=== PATIENT | male | born 1995 | race Caucasian/White ===

== ENCOUNTER 2018-12-12 17:01 | Emergency (ER) | payer BC ==
[2018-12-12] MEDS ORDERED: LIDOCAINE 1%/EPINEPHRINE INJ 20 ML VIAL INJ ONE (17:19)
[2018-12-12] MEDS ORDERED: DIPH/PERTUSS(ACELL)/TETANUS VAC/PF 0.5 ML SYR (>=10YO) IM ONE (17:20)
--- NOTE | 2018-12-12 17:21 | ER Document Report ---
ED Medical Screen (RME) - General Chief Complaint: Laceration Stated Complaint: FALL/FACIAL LACERATION Time Seen by Provider: 12/12/18 17:19 Mode of Arrival: Wheelchair Information source: Patient Notes: Patient presents after falling down 12 stairs injuring his face. Patient with a large left facial laceration with arterial bleeding. Patient states that he is uncertain if he would may have gotten into the wound. Patient denies any loss of consciousness nausea or vomiting. Patient does admit to drinking 12 shots today. I have greeted and performed a rapid initial assessment of this patient. A comprehensive ED assessment and evaluation of the patient, analysis of test results and completion of the medical decision making process will be conducted by additional ED providers. Physical Exam - Skin Skin irregularity: Laceration - Arterial bleeding laceration to left side of face
--- NOTE | 2018-12-12 18:00 | RADIOLOGY REPORT (SQ) ---
EXAM DESCRIPTION: CT HEAD WITHOUT COMPLETED DATE/TIME: 12/12/2018 5:49 pm REASON FOR STUDY: fall down stairs, facial lac COMPARISON: Concurrent CT cervical spine and maxillofacial CT TECHNIQUE: Axial images acquired through the brain without intravenous contrast. Images reviewed wi th bone, brain and subdural windows. Additional sagittal and coronal reconstructions were generated. Images stored on PACS. All CT scanners at this facility use dose modulation, iterative reconstruction, and/or weight based d osing when appropriate to reduce radiation dose to as low as reasonably achievable (ALARA). [facility]: Dose Right [facility]: CareDose [facility]: Dose Right [facility]: Teradose 4D [facility]: Smart [employer] RADIATION DOSE: CT Rad equipment meets quality standard of care and radiation dose reduction techniq ues were employed. CTDIvol: 53.2 mGy. DLP: 1044 mGy-cm. mGy. LIMITATIONS: None. FINDINGS: VENTRICLES: Normal size and contour. CEREBRUM: No masses. No hemorrhage. No midline shift. No evidence for acute infarction. Normal gra y/white matter differentiation. No areas of low density in the white matter. CEREBELLUM: No masses. No hemorrhage. No alteration of density. No evidence for acute infarction. EXTRAAXIAL SPACES: No fluid collections. No masses. ORBITS AND GLOBE: No intra- or extraconal masses. Normal contour of globe without masses. CALVARIUM: No fracture. PARANASAL SINUSES: Mild mucoperiosteal thickening in the visualized paranasal sinuses. SOFT TISSUES: No mass or hematoma. OTHER: No other significant finding. IMPRESSION: No acute intracranial hemorrhage. EVIDENCE OF ACUTE STROKE: NO. COMMENT: Quality ID # 436: Final reports with documentation of one or more dose reduction techniques (e.g., Automated exposure control, adjustment of the mA and/or kV according to patient size, use of iterative reconstruction technique) TECHNICAL DOCUMENTATION: JOB ID: [id number] [employer]- All Rights Reserved Reading location - IP/workstation name: [email or web address]
--- NOTE | 2018-12-12 18:02 | RADIOLOGY REPORT (SQ) ---
EXAM DESCRIPTION: CT FACIAL AREA WITHOUT COMPLETED DATE/TIME: 12/12/2018 5:49 pm REASON FOR STUDY: fall down stairs, facial lac COMPARISON: Concurrent head and cervical spine CT is TECHNIQUE: Noncontrasted images through the facial bones and orbits windowed for bone and soft tissu e. Additional coronal and sagittal reconstructed images reviewed. All images stored on PACS. All CT scanners at this facility use dose modulation, iterative reconstruction, and/or weight based d osing when appropriate to reduce radiation dose to as low as reasonably achievable (ALARA). [facility]: Dose Right [facility]: CareDose [facility]: Dose Right [facility]: Teradose 4D [facility]: [employer] RADIATION DOSE: CT Rad equipment meets quality standard of care and radiation dose reduction techniq ues were employed. CTDIvol: 30.4 mGy. DLP: 686 mGy-cm. mGy. LIMITATIONS: None. FINDINGS: FACIAL BONES: No fracture or bone lesion. ORBITS: Intact. No fracture. Symmetric intact globes and retroorbital soft tissues. PARANASAL SINUSES: Mild mucoperiosteal thickening of the paranasal sinuses. No nasal polyps. Maxilla ry sinus outlets are patent. SOFT TISSUES: No mass. No radiopaque foreign body. No soft tissue gas. Bandage material overlies t he soft tissues of the left half of the mandible. INFERIOR BRAIN: Limited view. No acute findings. OTHER: No other significant finding. IMPRESSION: NO ACUTE FINDINGS. TECHNICAL DOCUMENTATION: JOB ID: [id number] Quality ID # [id number]: Final reports with documentation of one or more dose reduction techniques (e.g., Au tomated exposure control, adjustment of the mA and/or kV according to patient size, use of iterative reconstruction technique) 2010 [employer]- All Rights Reserved Reading location - IP/workstation name: [email or web address]
--- NOTE | 2018-12-12 18:04 | RADIOLOGY REPORT (SQ) ---
EXAM DESCRIPTION: CT CERVICAL SPINE WITHOUT COMPLETED DATE/TIME: 12/12/2018 5:49 pm REASON FOR STUDY: fall down stairs, facial lac COMPARISON: Concurrent head and maxillofacial CTs TECHNIQUE: Axial images acquired through the cervical spine without intravenous contrast. Images re viewed with lung, soft tissue and bone windows. Reconstructed coronal and sagittal MPR images review ed. Images stored on PACS. All CT scanners at this facility use dose modulation, iterative reconstruction, and/or weight based d osing when appropriate to reduce radiation dose to as low as reasonably achievable (ALARA). [facility]: Dose Right [facility]: CareDose [facility]: Dose Right [facility]: Teradose 4D [facility]: [employer] RADIATION DOSE: CT Rad equipment meets quality standard of care and radiation dose reduction techniq ues were employed. CTDIvol: 16.2 mGy. DLP: 372 mGy-cm. mGy. LIMITATIONS: None. FINDINGS: ALIGNMENT: Anatomic. MINERALIZATION: Normal. VERTEBRAL BODIES: No fractures or dislocation. DISCS: No significant disc disease. FACETS, LATERAL MASSES, POSTERIOR ELEMENTS: No fractures. No dislocation. No acute findings. HARDWARE: None in the spine. VISUALIZED RIBS: No fractures. LUNG APICES AND SOFT TISSUES: No significant or acute findings. OTHER: No other significant finding. IMPRESSION: NO ACUTE OR SIGNIFICANT FINDINGS IN THE CERVICAL SPINE. TECHNICAL DOCUMENTATION: JOB ID: [id number] Quality ID # [id number]: Final reports with documentation of one or more dose reduction techniques (e.g., Au tomated exposure control, adjustment of the mA and/or kV according to patient size, use of iterative reconstruction technique) 2010 [employer]- All Rights Reserved Reading location - IP/workstation name: [email or web address]
[2018-12-12] MEDS ORDERED: TRANEXAMIC ACID INJ/PF 1,000 MG/10 ML SDV IV ONE (18:54)
--- NOTE | 2018-12-12 19:36 | ER Document Report ---
ED General - General Chief Complaint: Laceration Stated Complaint: FALL/FACIAL LACERATION Time Seen by Provider: 12/12/18 17:19 Mode of Arrival: Wheelchair Notes: Patient is a 23-year-old male without chronic medical history, arrives after falling down several steps while acutely intoxicated sustaining multiple lacerations to the left side of his face. Uncertain whether or not he lost consciousness. Describes a throbbing, aching, moderate, constant pain to the left side of his face and jaw where he fell. Nothing seems improved the pain. No obvious worsening factor. Denies focal weakness, numbness or confusion. Tetanus is not up-to-date. Visiting from [place] with friends and has been unable to speak to his primary doctor regarding today's concerns. Past Medical History - General Information source: Patient - Social History Smoking Status: Current Every Day Smoker Chew tobacco use (# tins/day): No Frequency of alcohol use: Social Drug Abuse: None Lives with: Family Family History: Reviewed & Not Pertinent Patient has suicidal ideation: No Patient has homicidal ideation: No Renal/ Medical History: Denies: Hx Peritoneal Dialysis Review of Systems - Review of Systems Notes: Constitutional: Negative for fever. Eyes: Negative for visual changes. ENT: Positive for facial injury Cardiovascular: Negative for chest injury. Respiratory: Negative for shortness of breath. Gastrointestinal: Negative for abdominal injury. Genitourinary: Negative for genital injury Musculoskeletal: Negative for back injury. Skin: Positive for laceration/abrasions. Neurological: Positive for head injury. Physical Exam - Vital signs Vitals: Temp Pulse Resp BP Pulse Ox 97.9 F 76 21 H 135/87 H 97 12/12/18 19:51 12/12/18 19:51 12/12/18 19:51 12/12/18 19:51 12/12/18 19:51 Interpretation: Normal Notes: PHYSICAL EXAMINATION: GENERAL: Well-appearing, no acute distress. HEAD: Atraumatic, normocephalic. EYES: Pupils equal round and reactive to light, extraocular movements intact, sclera anicteric, conjunctiva are normal. ENT: nares patent, no oral pharyngeal trauma. No hemotympanum, no Arshad's sign, no raccoon eyes. NECK: No midline cervical spine tenderness. Patient able to move their head to 45 bilaterally without any discomfort. LUNGS: Breath sounds clear to auscultation bilaterally and equal. No wheezes rales or rhonchi. HEART: Regular rate and rhythm without murmurs. CHEST WALL: No ecchymosis over the chest wall. ABDOMEN: Soft, nontender, normoactive bowel sounds. No guarding, no rebound. No abdominal bruising EXTREMITIES: Normal range of motion, no pitting or edema. No long bone deformities. BACK: No midline spinal tenderness, step-offs, or deformities. NEUROLOGICAL: Face symmetric. Tongue protrudes midline. Extraocular motions intact. Pupils are 2 mm and equally reactive. Normal speech, normal gait. 5 out of 5 strength in both the distal and proximal upper and lower extremities bilaterally. Sensation is grossly intact throughout. Finger to nose testing normal. Pronator drift normal. PSYCH: Somewhat intoxicated but in no acute distress SKIN: Warm, Dry, normal turgor, positive for lacerations to the left face and ear. Please review documentation from laceration repair notes Course - Re-evaluation Re-evalutation: 12/12/18 19:36 Patient presents after a fall down several steps while intoxicated. Arrives with multiple lacerations over the left ear and left cheek. See laceration repair documentation. Tetanus was updated upon arrival. Given patient's intoxicated status and associated head trauma CT of the head, cervical spine and facial areas were all completed without evidence of underlying fracture or retained foreign body. The patient did not sustain any injuries to any other location. Has no focal neurologic deficits on exam. Like alert, oriented al though intoxicated. TXA was required for injection into the largest 7 cm cheek laceration as there was an arterial bleed that would not stop with direct pressure. This did effectively stop the bleeding and the wound was subsequently closed after aggressive irrigation. Patient has been advised against heavy drinking in the future. At this time will discharge with return precautions and follow-up recommendations. Verbal discharge instructions given a the bedside and opportunity for questions given. Medication warnings reviewed. Patient is in agreement with this plan and has verbalized understanding of return precautions and the need for primary care follow-up in the next 24-72 hours. - Vital Signs Vital signs: Temp Pulse Resp BP Pulse Ox 97.9 F 76 21 H 135/87 H 97 12/12/18 19:51 12/12/18 19:51 12/12/18 19:51 12/12/18 19:51 12/12/18 19:51 - Diagnostic Test Radiology reviewed: Image reviewed, Reports reviewed Radiology results interpreted by me: 12/12/18 19:38 CT head: No acute intracranial bleed or mass Procedures - Laceration/Wound Repair Left ear Wound length (cm): 2 Wound's Depth, Shape: Superficial Laceration pre-procedure: Sterile PPE donned Anesthetic type: 1% Lidocaine w/epi Volume Anesthetic (mLs): 1 Wound explored: Clean Irrigated w/ Saline (mLs): 300 Wound Debrided: Minimal Wound Repaired With: Sutures Suture Size/Type: 5:0, Prolene Number of Sutures: 1 - Continuous running stitch Layer Closure?: No Post-procedure wound care: Sterile dressing applied Post-procedure NV exam normal: Yes Complications: No Left cheek 1 Wound length (cm): 7 Wound's Depth, Shape: Irregular, Contused tissue Laceration pre-procedure: Sterile PPE donned Anesthetic type: 1% Lidocaine w/epi Volume Anesthetic (mLs): 3 Wound explored: Clean Irrigated w/ Saline (mLs): 500 Wound Debrided: Moderate Wound Repaired With: Sutures Suture Size/Type: 5:0, 4:0, Prolene Number of Sutures: 5 - 2 horizontal mattress, 3 simple interrupted Layer Closure?: No Post-procedure wound care: Sterile dressing applied Post-procedure NV exam normal: Yes Complications: No Left cheek 2 Wound length (cm): 7 Wound's Depth, Shape: Superficial Laceration pre-procedure: Sterile PPE donned Anesthetic type: 1% Lidocaine w/epi Volume Anesthetic (mLs): 1 Wound explored: Clean Irrigated w/ Saline (mLs): 500 Wound Debrided: Minimal Wound Repaired With: Sutures Suture Size/Type: 5:0, Prolene Number of Sutures: 4 Layer Closure?: No Post-procedure wound care: Sterile dressing applied Post-procedure NV exam normal: Yes Complications: No Left cheek 3 Wound length (cm): 2 Wound's Depth, Shape: Superficial Laceration pre-procedure: Sterile PPE donned Anesthetic type: 1% Lidocaine w/epi Volume Anesthetic (mLs): 300 Wound explored: Clean Wound Debrided: Minimal Wound Repaired With: Sutures Suture Size/Type: 5:0, Prolene Number of Sutures: 3 Layer Closure?: No Post-procedure wound care: Sterile dressing applied Post-procedure NV exam normal: Yes Complications: No Left cheek 4 Wound length (cm): 1 Wound's Depth, Shape: Superficial Laceration pre-procedure: Sterile PPE donned Anesthetic type: 1% Lidocaine w/epi Volume Anesthetic (mLs): 1 Wound explored: Clean Irrigated w/ Saline (mLs): 300 Wound Debrided: Minimal Wound Repaired With: Sutures Suture Size/Type: 5:0, Prolene Number of Sutures: 1 Layer Closure?: No Post-procedure wound care: Sterile dressing applied Post-procedure NV exam normal: Yes Complications: No Discharge - Discharge Clinical Impression: Laceration of multiple sites of face Head trauma Qualifiers: Encounter type: initial encounter Qualified Code(s): S09.90XA - Unspecified i njury of head, initial encounter Alcohol intoxication Qualifiers: Complication of substance-induced condition: uncomplicated Qualified Code(s): F10.920 - Alcohol use, unspecified with intoxication, uncomplicated Condition: Good Disposition: HOME, SELF-CARE Additional Instructions: Please return to your primary doctor, the ED, or an urgent care in 7 days for suture removal. Return immediately if you develop spreading redness around the wound, pus from the wound, worsening pain, or a fever of >100.4. Keep the area clean and dry. Wash gently with soap and water twice daily and cover with antibiotic ointment. For your pain: Take ibuprofen 600 mg and acetaminophen 1000 mg every 6 hours together as needed for pain. You have likely sustained a contusion (bruise) to your head. Your CT scans today are normal. Symptoms to expect from a concussion include nausea, mild to moderate headache, difficulty concentrating or sleeping, and mild lightheadedness. These symptoms should improve over the next few days to weeks. Return to the emergency department or follow-up with your primary care doctor if your symptoms are not improving over this time. Signs of a more serious head injury include vomiting, severe headache, excessive sleepiness or confusion, and weakness or numbness in your face, arms or legs. Return immediately to the Emergency Department if you experience any of these more concerning symptoms. R est, avoid strenuous physical or mental activity, and avoid activities that could potentially result in another head injury until all your symptoms from this head injury are completely resolved for at least 2-3 weeks. If you participate in sports, get cleared by your doctor or personal trainer before returning to play. You may take ibuprofen or acetaminophen over the counter according to label instructions for mild headache or scalp soreness. You were seen in the emergency department today for being drunk and having associated fall. Being seen in the emergency department after drinking alcohol is a serious indicator that you may have a problem with alcohol. Please very seriously consider modifying your drinking behaviors.
[2018-12-12 20:09] VITALS: BP 135/87
== END 2018-12-12 19:51 | disposition home or self-care (01) ==
LOC: ER 17:01
DX: S01.81XA Laceration without foreign body of other part of head, initial encounter (principal); S09.90XA Unspecified injury of head, initial encounter; W10.9XXA Fall (on) (from) unspecified stairs and steps, initial encounter; F10.920 Alcohol use, unspecified with intoxication, uncomplicated; F17.200 Nicotine dependence, unspecified, uncomplicated; Z23 Encounter for immunization
CPT/HCPCS: 99283; 90471; 70450; 70486; 72125; 90715; 12016; J3490